=== PATIENT | female | born 1955 | race Caucasian/White ===

== ENCOUNTER 2021-03-09 14:25 | Emergency (ER) | payer BC ==
[2021-03-09 15:37] LABS: ANION GAP 14.5 mmol/L (5-15); CHLORIDE,CL 100 mmol/L (98-107); SODIUM,NA 142 mmol/L (136-145)
--- NOTE | 2021-03-09 17:03 | EDM.PDOC ---
ED HPI GENERAL MEDICAL PROBLEM - General Chief Complaint: Cardiovascular Problem Stated Complaint: RAPID HEARTRATE Time Seen by Provider: 03/09/21 14:30 Source of Information: Reports: Patient, Family (sister) History Limitations: Reports: No Limitations - History of Present Illness INITIAL COMMENTS - FREE TEXT/NARRATIVE: 66-year-old female presents to the emergency room with episodes of palpitations. She reports she has had palpations over the last a year. She feels it occurs at least 2 times a week usually lasting about 10 minutes. Today she noticed palpation started around 10 AM and lasted till 2:00 this afternoon. She became concerned with this lasting so long and elected to present to the emergency room for further evaluation. She denies any chest pain she is not experiencing shortness of breath. She denies jaw pain shoulder pain neck or back pain. She reports that she has some exertional dyspnea with activity such as stairs. She has never had any history of ME. She does have hyperlipidemia and has had elevated blood sugars and recommended starting on oral medication for type 2 diabetes but has elected to try diet control first. She has had palpations many years ago in the past and did wear a Holter monitor for this. She has had a prior stress test but she feels its been at least 15 years ago. She is followed by Adriana Choi nurse practitioner. Onset: Today Onset Date: 03/09/21 Onset Time: 10:00 Duration: Hour(s): (4 hours), Resolved Prior to Arrival Location: Reports: Chest Quality: Reports: Other Severity: Mild Improves with: Reports: None Worsens with: Reports: None Associated Symptoms: Denies: Chest Pain, Diaphoresis, Fever/Chills, Headaches, Nausea/Vomiting, Shortness of Breath, Syncope - Related Data Allergies Allergy/AdvReac Type Severity Reaction Status Date / Time No Known Allergies Allergy Verified 03/09/21 15:01 Home Meds: Home Meds Aspirin [Halfprin] 81 mg PO DAILY 03/09/21 [History] Multivitamin/Iron/Folic Acid [Daily Vit Formula + Iron Tab] 1 each PO DAILY 03/09/21 [History] Triamterene 37.5 mg PO DAILY 03/09/21 [History] Past Medical History Cardiovascular History: Reports: Hypertension Social & Family History - Tobacco Use Tobacco Use Status *Q: Never Tobacco User - Alcohol Use Days Per Week of Alcohol Use: 7 Number of Drinks Per Day: 4 Total Drinks Per Week: 28 - Recreational Drug Use Recreational Drug Use: No ED ROS GENERAL - Review of Systems Review Of Systems: See Below Constitutional: Denies: Diaphoresis HEENT: Reports: No Symptoms Respiratory: Denies: Shortness of Breath, Pleuritic Chest Pain Cardiovascular: Reports: Dyspnea on Exertion, Palpitations. Denies: Chest Pain, Blood Pressure Problem, Edema, Lightheadedness, Orthopnea, PND, Syncope Endocrine: Reports: High Glucose GI/Abdominal: Reports: No Symptoms : Reports: No Symptoms Musculoskeletal: Reports: No Symptoms Skin: Reports: No Symptoms Neurological: Reports: No Symptoms Psychiatric: Reports: No Symptoms Hematologic/Lymphatic: Reports: No Symptoms Immunologic: Reports: No Symptoms ED EXAM, GENERAL - Physical Exam Exam: See Below Exam Limited By: No Limitations General Appearance: Alert, Obese Eye Exam: Bilateral Eye: EOMI, PERRL Ears: Normal External Exam, Normal Canal, Hearing Grossly Normal Nose: Normal Inspection Throat/Mouth: Normal Inspection, Normal Voice, No Airway Compromise Head: Atraumatic, Normocephalic Neck: Normal Inspection, Supple, Non-Tender, Full Range of Motion. No: Carotid Bruit, Lymphadenopathy (L), Lymphadenopathy (R) Respiratory/Chest: No Respiratory Distress, Lungs Clear, Normal Breath Sounds, No Accessory Muscle Use, Chest Non-Tender Cardiovascular: Normal Peripheral Pulses, Regular Rate, Rhythm, No Edema, No Gallop, No JVD, No Murmur, No Rub Peripheral Pulses: 2+: Carotid (L), Carotid (R), Radial (L), Radial (R), Dorsalis Pedis (L), Dorsalis Pedis (R) GI/Abdominal: Normal Bowel Sounds, Soft, Non-Tender, No Organomegaly, No Abnormal Bruit Back Exam: Normal Inspection, Full Range of Motion Extremities: Normal Inspection, Normal Range of Motion, Non-Tender, No Pedal Edema Neurological: Alert, Oriented, Normal Cognition, Normal Gait, No Motor/Sensory Deficits Psychiatric: Normal Affect, Normal Mood Skin Exam: Warm, Dry, Intact, Normal Color, No Rash Lymphatic: No Adenopathy #1 Interpretation EKG Date: 03/09/21 Time: 14:35 Rhythm: NSR Rate (Beats/Min): 96 [place]: Normal P-Wave: Present QRS: Normal ST-T: Normal QT: Normal Comparison: NA - No Prior EKG EKG Interpretation Comments: Normal sinus rhythm Nonspecific ST abnormality Course - Vital Signs Last Recorded V/S: Last Vital Signs Temp 98.1 F 03/09/21 14:50 Pulse 98 03/09/21 14:50 Resp 20 03/09/21 14:50 BP 161/88 H 03/09/21 14:50 Pulse Ox 94 L 03/09/21 14:50 - Orders/Labs/Meds Orders: Active Orders 24 hr Category Date Time Status EKG 12 Lead [EK] Stat Ther 03/09/21 14:56 Ordered Labs: Laboratory Tests 03/09/21 03/09/21 Range/Units 15:12 15:12 WBC 8.49 (5.00-10.00) 10^3/uL RBC 4.71 (3.80-5.50) 10^6/uL Hgb 15.7 (12.0-16.0) g/dL Hct 45.9 (37.0-47.0) % MCV 97.5 H (82.0-92.0) fL MCH 33.3 H (27.0-31.0) pg MCHC 34.2 (32.0-36.0) g/dL RDW 12.5 (11.5-14.5) % Plt Count 188 (150-400) 10^3/uL MPV 10.0 (7.4-10.4) fL Immature Gran % (Auto) 0.4 (0.0-5.0) % Neut % (Auto) 70.2 H (50.0-70.0) % Lymph % (Auto) 19.3 L (20.0-40.0) % [place] % (Auto) 6.2 (2.0-8.0) % Eos % (Auto) 3.4 H (1.0-3.0) % Baso % (Auto) 0.5 (0.0-1.0) % Neut # (Auto) 5.96 (2.50-7.00) 10^3/uL Lymph # (Auto) 1.64 (1.00-4.00) 10^3/uL [place] # (Auto) 0.53 (0.10-0.80) 10^3/uL Eos # (Auto) 0.29 (0.10-0.30) 10^3/uL Baso # (Auto) 0.04 (0.00-0.10) 10^3/uL Immature Gran # (Auto) 0.03 (0.00-0.50) 10^3/uL Sodium 142 (136-145) mmol/L Potassium 3.5 (3.5-5.1) mmol/L Chloride 100 (98-107) mmol/L Carbon Dioxide 31.0 (21.0-32.0) mmol/L Anion Gap 14.5 (5-15) mmol/L BUN 13 (7-18) mg/dL Creatinine 0.59 (0.51-1.17) mg/dL Est Cr Clr Drug Dosing 86.68 mL/min Estimated GFR (MDRD) > 60 mL/min Glucose 150 H (70-140) mg/dL Calcium 9.0 (8.7-10.3) mg/dL Troponin I High Sens 10.400 (0-51.000) pg/mL - Re-Assessments/Exams Free Text/Narrative Re-Assessment/Exam: 03/09/21 17:05 Patient has not experienced any recurrence of the palpitations during her hospital stay. Lab work looks unremarkable EKG will sinus rhythm. Patient has not having any chest pain or shortness of breath. We have discussed with the patient about core morbidities which include obesity,hyperlipidemia and elevated blood sugars. Departure - Departure Time of Disposition: 16:30 Disposition: Home, Self-Care 01 Condition: Good Clinical Impression: Palpitations with regular cardiac rhythm Instructions: Type 2 Diabetes Mellitus, Diagnosis, Adult, Hypertension, Adult, [id number], Palpitations Referrals: Adriana Choi NP [Primary Care Provider] - Forms: ED Department Discharge Care Plan Goals: 1. Rest 2. Avoid exertional activities until follow-up with your primary care. 3. Follow-up with your primary care next week for further work-up of heart palpitations. 4. If heart palpitations return and last longer than 10 minutes he should follow-up with the emergency room. If you experience any shortness of breath or chest pain associated with your palpations you should return immediately to the emergency room. Sepsis Event Note (ED) - Evaluation Sepsis Screening Result: No Definite Risk - Focused Exam Vital Signs: Vital Signs Temp Pulse Resp BP Pulse Ox 03/09/21 14:50 98.1 F 98 20 161/88 H 94 L - My Orders Last 24 Hours: My Active Orders 03/09/21 14:56 EKG 12 Lead [EK] Stat - Assessment/Plan Last 24 Hours: My Active Orders 03/09/21 14:56 EKG 12 Lead [EK] Stat Assessment:: Palpations with regular heart rhythm Plan: 1. Rest 2. Avoid exertional activities until follow-up with your primary care. 3. Follow-up with your primary care next week for further work-up of heart palpitations. 4. If heart palpitations return and last longer than 10 minutes he should follow-up with the emergency room. If you experience any shortness of breath or chest pain associated with your palpations you should return immediately to the emergency room.
== END 2021-03-09 16:35 | disposition home or self-care (01) ==
LOC: KA.ED 14:25
DX: R00.2 Palpitations (principal); I10 Essential (primary) hypertension; Z79.82 Long term (current) use of aspirin
CPT/HCPCS: 36415; 80048; 84484; 85025; 93005; 99284; 99285-25